=== PATIENT | female | born 1995 | race African-American/Black ===

== ENCOUNTER 2017-05-16 13:53 | Emergency (ER) | payer MEDICAID ==
--- NOTE | 2017-05-16 14:47 | ER Document Report ---
HPI - HPI Context: Patient is a 21 year old female p/w h/o seasonal allergies complaining of sinus congestion, ear pressure, sore throat and nonproductive cough that started yesterday. denies any fevers or chills. states she only took honey for her sore throat . She denies any purulent drainage. She states her vaccines are up-to- date. Does not have an client resolution specialist in the area. - REPRODUCTIVE Reproductive: DENIES: : Past Medical History - Social History Smoking Status: Current Every Day Smoker Family History: Reviewed & Not Pertinent - Past Medical History Cardiac Medical History: Reports: Hx Hypertension Past Surgical History: Reports: Hx Orthopedic Surgery - bilateral knee surgery - Immunizations Immunizations up to date: No Hx Diphtheria, Pertussis, Tetanus Vaccination: Yes - 2010 Vertical Provider Document - CONSTITUTIONAL Agree With Documented VS: Yes Notes: PHYSICAL EXAM GENERAL: Alert, interacts well. HEENT: NCAT, pale conjunctiva, extraocular movements intact, pupils PERRL. external ear normal, no evidence of external auditory canal tenderness, blood/ drainage, cerumen impaction, TM intact with evidence of bulging without purulent effusion, injection, MMM, Uvula midline. Airway patent. No evidence of tonsillar enlargement, peritonsillar abscess, retropharyngeal abscess. NECK: Full range of motion. Supple. Trachea midline. LUNGS: Clear to auscultation bilaterally, no wheezes, rales, or rhonchi. No respiratory distress. HEART: Regular rate and rhythm. No murmurs, gallops, or rubs. NEUROLOGICAL: Alert and oriented x4. Normal speech. PSYCH: Normal affect, normal mood. SKIN: Warm, dry, normal turgor. No rashes or lesions noted. - INFECTION CONTROL TRAVEL OUTSIDE OF THE [place] IN LAST 30 DAYS: No Course - Re-evaluation Re-evalutation: 05/16/17 14:48 Patient is a 21 year old female who presents consistent with seasonal allergies and sinus congestion. No evidence of sinus infection given she is febrile, nontender, no erythema, purulent drainage. Physical exam benign. D.w with her to utilize OTC antihistamines and follow up with client resolution specialist - Vital Signs Vital signs: Temp Pulse Resp BP Pulse Ox 98.6 F 88 18 121/62 98 05/16/17 14:01 05/16/17 14:01 05/16/17 14:01 05/16/17 14:01 05/16/17 14:01 Discharge - Discharge Clinical Impression: Sinus congestion, Post-nasal drip Condition: Good Disposition: HOME, SELF-CARE Instructions: Acetaminophen Additional Instructions: Please take an [id number] antihistamine and decongestant to help with your sinus congestion and ear pressure. It was not sudden hospitality he can also utilize Afrin nasal spray to help with your runny nose. Please follow-up with the client resolution specialist listed on your discharge paperwork. Prescriptions: Cetirizine HCl/Pseudoephedrine [Zyrtec-D 12 Hour Tablet] 1 tab.sr PO Q12 #30 tab.sr Referrals: CAMRON STOVER MD [Primary Care Provider] - Follow up as needed [facility] [Provider Group] - Follow up in 1 week
[2017-05-16] MEDS ORDERED: IBUPROFEN 600 MG TABLET PO ONE (14:55)
[2017-05-16] MEDS ORDERED: PSEUDOEPHEDRINE HCL 30 MG TABLET PO ONE (14:56)
[2017-05-16 15:33] VITALS: BP 128/84
== END 2017-05-16 15:36 | disposition home or self-care (01) ==
LOC: ER 13:53
DX: R09.82 Postnasal drip (principal); R09.81 Nasal congestion; R05 Cough; F17.200 Nicotine dependence, unspecified, uncomplicated; I10 Essential (primary) hypertension
CPT/HCPCS: 99283; J3490